=== PATIENT | female | born 1970 | race Caucasian/White ===

== ENCOUNTER 2019-03-06 12:48 | Inpatient (IN) | payer MEDICAID ==
[~2019-03-06] VITALS: Ht 157.5 cm; Wt 67.6 kg
[2019-03-06] MEDS ORDERED: MORPHINE SULFATE 4 MG/ML CPJ (NOT FOR IM USE) IV STA (13:20)
[2019-03-06 14:06] LABS: BASOPHILS % 0.5 % (0.0-2.0); EOSINOPHILS % 0.5 % (0.0-5.0); HEMATOCRIT. 34.8 % (36.0-48.0); HEMOGLOBIN. 11.9 g/dL (12.0-16.0); LYMPHOCYTES % 18.5 % (20.0-50.0); MEAN CORPUSCULAR HEMOGLOBIN 33.1 pg (28.0-32.0); MEAN CORPUSCULAR VOLUME 96.9 fL (81.0-99.0); MEAN PLATELET VOLUME 8.7 fl (7.4-10.4); MONOCYTES % 5.6 % (2.0-8.0); NEUTROPHILS % 74.9 % (40.0-76.0); PLATELET 196 x1000/uL (130-400); RED BLOOD CELL COUNT 3.59 mill/uL (4.2-5.4); RED CELL DISTRIBUTION WIDTH 13.5 % (11.6-14.6)
[2019-03-06 14:11] LABS: CHLORIDE 110 mEq/L (98-107)
[2019-03-06] MEDS ORDERED: ACETAMINOPHEN 325MG TABLET PO PRN (16:00)
[2019-03-06] MEDS ORDERED: NITROGLYCERIN 0.4MG TABLET SL SL PRN (16:00)
[2019-03-06] MEDS ORDERED: ONDANSETRON HCL 4MG/2ML INJ IV PRN (16:00)
[2019-03-06] MEDS ORDERED: MAGNESIUM/ALUMINUM HYDROXIDE/SIMETHICONE 30ML UDC PO PRN (16:00)
[2019-03-06] MEDS ORDERED: DIPHENHYDRAMINE 50MG/ML VIAL IV PRN (16:00)
[2019-03-06] MEDS ORDERED: ASPIRIN 325MG EC TABLET PO ONE (16:00)
[2019-03-06] MEDS ORDERED: KETOROLAC 15MG/ML VIAL IV PRN (16:00)
[2019-03-06] MEDS ORDERED: DOCUSATE SODIUM 100MG CAPSULE PO PRN (16:00)
[2019-03-06] MEDS ORDERED: CLONIDINE 0.1MG TABLET PO PRN (16:00)
[2019-03-06] MEDS ORDERED: TRAMADOL 50MG TABLET PO PRN (16:00)
[2019-03-06] MEDS ORDERED: IPRATROPIUM/ALBUTEROL 0.5-3(2.5)MG/3ML NEB HHN PRN (16:00)
[2019-03-06] MEDS ORDERED: ZOLPIDEM TARTRATE 5MG TABLET PO PRN (16:00)
[2019-03-06] MEDS ORDERED: LORAZEPAM 0.5MG TABLET PO PRN (16:00)
[2019-03-06] MEDS ORDERED: GUAIFENESIN 200MG/10ML SUGAR FREE UDC PO PRN (16:00)
[2019-03-06] MEDS ORDERED: ENOXAPARIN 40MG/0.4ML SYR SUBCUT SCH (16:15)
[2019-03-06 20:35] LABS: *AMPHETAMINES SCREEN URINE NEGATIVE (NEGATIVE)
[2019-03-06 20:36] LABS: *BARBITURATES SCREEN URINE NEGATIVE (NEGATIVE); *BENZODIAZEPINES SCREEN URINE NEGATIVE (NEGATIVE); *COCAINE SCREEN URINE NEGATIVE (NEGATIVE); METHADONE URINE SCREEN NEGATIVE (NEGATIVE); OPIATES URINE SCREEN NEGATIVE (NEGATIVE); PHENCYCLIDINE URINE SCREEN NEGATIVE (NEGATIVE)
[2019-03-06 20:37] LABS: CANNABINOID URINE SCREEN NEGATIVE (NEGATIVE)
[2019-03-06 22:00] VITALS: BP 107/56
[2019-03-06 22:45] VITALS: BP 107/55
[2019-03-06] MEDS: FAMOTIDINE 20MG TABLET PO SCH (23:54)
[2019-03-07] VITALS: BP 97/51
[2019-03-07] MEDS ORDERED: LOSA25TA26 PO (00:27)
[2019-03-07] MEDS ORDERED: DOCU100T PO (00:27)
[2019-03-07] MEDS ORDERED: AMLO5TAB88 PO (00:29)
[2019-03-07] MEDS ORDERED: HYDR-4001 PO (00:29)
[2019-03-07 00:39] LABS: CREATINE KINASE 46 IU/L (26-192)
[2019-03-07 00:40] LABS: CREATINE KINASE MB FRACTION < 1.0 ng/mL (0.5-3.6)
[2019-03-07 04:00] VITALS: BP 95/57
[2019-03-07 06:22] LABS: CREATINE KINASE 40 IU/L (26-192)
[2019-03-07 06:23] LABS: CREATINE KINASE MB FRACTION < 1.0 ng/mL (0.5-3.6)
[2019-03-07 08:00] VITALS: BP 101/48
[2019-03-07] MEDS ORDERED: ENOXAPARIN 40MG/0.4ML SYR SUBCUT SCH (09:00)
[2019-03-07] MEDS ORDERED: ASPIRIN 81MG EC TABLET PO SCH (09:00)
[2019-03-07] MEDS: FAMOTIDINE 20MG TABLET PO SCH (09:15)
[2019-03-07 12:30] VITALS: BP 103/50
[2019-03-07 12:38] VITALS: BP 103/50
== END 2019-03-07 14:30 | disposition home or self-care (01) | DRG 203 ==
LOC: ER 13:39 → 5WST 15:50 → ENRESERV 21:51
PROVIDERS: ADMIT Internal Medicine; ATTEND Internal Medicine
DX: R07.89 Other chest pain (principal); I10 Essential (primary) hypertension; Z85.3 Personal history of malignant neoplasm of breast; Z90.10 Acquired absence of unspecified breast and nipple
CPT/HCPCS: 36415; 71045; 73590; 80061; 80305; 82550; 82553; 83036; 83880; 84484; 93005; 93970; 99285; J1650